=== PATIENT | female | born 1960 | race Caucasian/White ===

== ENCOUNTER → 2017-01-04 | Outpatient (CLI) | payer MEDICARE ==
--- NOTE | 2017-01-04 12:51 | XR ---
EXAMINATION TYPE: XR chest 2V DATE OF EXAM: 01/04/2017 12:46 PM COMPARISON: 06/13/2011 HISTORY: 56-year-old female persistent cough TECHNIQUE: Frontal and lateral views FINDINGS: The heart is normal size without pericardial effusion. There is diffuse interstitial prominence and p eribronchial cuffing. Vague peripheral mid lung densities, left greater than right, uncertain if this represents summation artifact. No pleural effusion. IMPRESSION: 1. Bronchitis or chronic asthma. 2. Some vague density left greater than right midlungs has a somewhat masslike configuration. If the patient has not responded to antibiotics, consider contrast-enhanced CT.
== END ==
LOC: RADXRMAIN 12:38
PROVIDERS: ATTEND Family Medicine
DX: J40 Bronchitis, not specified as acute or chronic (principal)
CPT/HCPCS: 71020

== ENCOUNTER → 2017-03-31 | Outpatient (CLI) | payer MEDICARE ==
--- NOTE | 2017-04-01 13:30 | MM ---
Reason for exam: screening (asymptomatic). Last mammogram was performed 3 years and 5 months ago. History: Patient is postmenopausal. Family history of breast cancer in maternal aunt. Benign excisional biopsy of the right breast, 2002. Physical Findings: A clinical breast exam by your physician is recommended on an annual basis and results should be correlated with mammographic findings. MG 3D Screening Mammo W/Cad Bilateral CC and MLO view(s) were taken. Prior study comparison: October 20, 2013, [facility] DIGITAL RIGHT MAMMOGRAM w/CAD. October 19, 2013, bilateral digital screening mammo w/CAD. December 13, 2011, bilateral digital screening mammo w/CAD. August 02, 2010, bilateral diagnostic digital mammog. The breast tissue is heterogeneously dense. This may lower the sensitivity of mammography. Three nodular focal asymmetries become more apparent on 3D images and are not well seen previously. These are in the upper outer quadrant right breast. ASSESSMENT: Incomplete: need additional imaging evaluation, BI-RAD 0 RECOMMENDATION: Special view mammogram and ultrasound of the right breast. [facility] will attempt to contact patient to return for supplemental views and ultrasound.
== END | disposition home or self-care (01) ==
LOC: RADMAMWWP 16:50
PROVIDERS: ATTEND Family Medicine
DX: Z12.31 Encounter for screening mammogram for malignant neoplasm of breast (principal)
CPT/HCPCS: 77063; G0202

== ENCOUNTER → 2017-11-12 | Outpatient (CLI) | payer MEDICARE ==
--- NOTE | 2017-11-12 10:55 | MM ---
Reason for exam: follow-up at short interval from prior study. Last mammogram was performed 6 months ago. History: Patient is postmenopausal. Family history of breast cancer in maternal aunt at age 50 and breast cancer in mother at age 62. Benign MG stereo VAD BX RT of the right breast, May 08, 2017. Benign excisional biopsy of the right breast, 2002. Physical Findings: Nurse did not find any significant physical abnormalities on exam. MG 3D Diag Mammo W/Cad RT CC and MLO view(s) were taken of the right breast. Prior study comparison: May 01, 2017, right breast MG 3d work up w/cad RT. March 31, 2017, bilateral MG 3d screening mammo w/cad. The breast tissue is heterogeneously dense. This may lower the sensitivity of mammography. Nodularity is unchanged for at least 6 months. The central nodule has been biopsied in the interval. Patient's annual exam can be performed in diagnostic clinic. These results were verbally communicated with the patient and result sheet given to the patient on 11/12/17. ASSESSMENT: Probably benign, BI-RAD 3 RECOMMENDATION: Follow-up diagnostic mammogram of both breasts in 6 months.
== END | disposition home or self-care (01) ==
LOC: RADMAMWWP 09:24
PROVIDERS: ATTEND Surgery
DX: R92.8 Other abnormal and inconclusive findings on diagnostic imaging of breast (principal)
CPT/HCPCS: 77065; G0279

== ENCOUNTER → 2018-05-26 | Outpatient (CLI) | payer MEDICARE ==
--- NOTE | 2018-05-27 08:15 | MM ---
Reason for exam: follow-up at short interval from prior study. Last mammogram was performed 6 months ago. History: Patient is postmenopausal. Family history of breast cancer in maternal aunt at age 50 and breast cancer in mother at age 62. Benign MG stereo VAD BX RT of the right breast, May 08, 2017. Benign excisional biopsy of the right breast, 2002. Physical Findings: Nurse did not find any significant physical abnormalities on exam. MG 3D Diag Mammo W/Cad EDI Bilateral CC and MLO view(s) were taken. Technologist: Dea Briseno, RT (R)(M) Prior study comparison: November 12, 2017, right breast MG 3d diag mammo w/cad RT. May 01, 2017, right breast MG 3d work up w/cad RT. The breast tissue is heterogeneously dense. This may lower the sensitivity of mammography. Previous mammotome biopsy in the right breast. There is chronic nodularity in the right breast. There is no discrete abnormality. These results were verbally communicated with the patient and result sheet given to the patient on 05/26/18. ASSESSMENT: Benign, BI-RAD 2 RECOMMENDATION: Routine screening mammogram of both breasts in 1 year.
== END ==
LOC: RADMAMWWP 14:15
PROVIDERS: ATTEND Surgery
DX: R92.8 Other abnormal and inconclusive findings on diagnostic imaging of breast (principal)
CPT/HCPCS: 77066; G0279; 77062

== ENCOUNTER → 2019-06-14 | Outpatient (CLI) | payer MEDICARE ==
--- NOTE | 2019-06-14 10:44 | XR ---
EXAMINATION TYPE: XR chest 2V DATE OF EXAM: 06/14/2019 COMPARISON: 01/04/2017 INDICATION: Short of breath chest congestion every day smoker TECHNIQUE: Frontal and lateral views of the chest are obtained. FINDINGS: The heart size is normal. The pulmonary vasculature is normal. Suspicious consolidations are not identified.. IMPRESSION: 1. No acute pulmonary process. 2. Consider follow-up low-dose CT chest for screening.
== END ==
LOC: RADXRMAIN 10:23
PROVIDERS: ATTEND Family Medicine
DX: R06.02 Shortness of breath (principal); R09.89 Other specified symptoms and signs involving the circulatory and respiratory systems
CPT/HCPCS: 71046

== ENCOUNTER → 2020-07-14 | Outpatient (CLI) | payer MEDICARE ==
--- NOTE | 2020-07-17 09:39 | MM ---
Reason for exam: additional evaluation requested from prior study. Last mammogram was performed 2 years and 2 months ago. History: Patient is postmenopausal. Family history of breast cancer in maternal aunt at age 50 and breast cancer in mother at age 62. Benign MG stereo VAD BX RT of the right breast, May 08, 2017. Benign excisional biopsy of the right breast, 2002. Physical Findings: Nurse did not find any significant physical abnormalities on exam. MG 3D Diag Mammo W/Cad EDI Bilateral CC, MLO, and XCCL view(s) were taken. Prior study comparison: May 26, 2018, bilateral MG 3d diag mammo w/cad EDI. November 12, 2017, right breast MG 3d diag mammo w/cad RT. The breast tissue is heterogeneously dense. This may lower the sensitivity of mammography. Previous mammotome biopsy in the right breast. No significant new findings when compared with previous films. These results were verbally communicated with the patient and result sheet given to the patient on 07/14/20. ASSESSMENT: Benign, BI-RAD 2 RECOMMENDATION: Routine screening mammogram of both breasts in 1 year.
--- NOTE | 2020-07-17 09:40 | USB ---
Reason for exam: additional evaluation requested from prior study. History: Patient is postmenopausal. Family history of breast cancer in maternal aunt at age 50 and breast cancer in mother at age 62. Benign MG stereo VAD BX RT of the right breast, May 08, 2017. Benign excisional biopsy of the right breast, 2002. US Breast RT Right complete breast ultrasound includes all four quadrants, the retroareolar region and axilla. Finding demonstrates a 0.8 x 0.6 x 0.3cm cystic lesion at 2 o'clock. These results were verbally communicated with the patient and result sheet given to the patient on 07/14/20. ASSESSMENT: Probably benign, BI-RAD 3 RECOMMENDATION: Ultrasound of the right breast in 6 months. Manage patient on a clinical basis.
== END | disposition home or self-care (01) ==
LOC: RADMAMWWP 14:10
PROVIDERS: ATTEND Surgery
DX: N64.52 Nipple discharge (principal); N64.59 Other signs and symptoms in breast
CPT/HCPCS: 77066; 76641; G0279; 77062

== ENCOUNTER 2022-03-20 15:56 | Observation (INO) | payer MEDICARE ==
[2022-03-20 16:41] LABS: INR 0.9 (<1.2); Partial Thromboplastin Time 23.2 sec (22.0-30.0); Prothrombin Time 10.4 sec (9.0-12.0)
[2022-03-20 16:42] LABS: ALT 48 U/L (4-34); AST 33 U/L (14-36); African American GFR (CKD) >90 (>60 ml/min/1.73 sqM); Alkaline Phosphatase 113 U/L (38-126); Anion Gap 6 mmol/L; Blood Urea Nitrogen 11 mg/dL (7-17); Calcium 9.4 mg/dL (8.4-10.2); Carbon Dioxide 25 mmol/L (22-30); Chloride 105 mmol/L (98-107); Glucose 126 mg/dL (74-99); Magnesium 1.7 mg/dL (1.6-2.3); Non-African American GFR(CKD) >90 (>60 ml/min/1.73 sqM); Potassium 3.8 mmol/L (3.5-5.1); Sodium 136 mmol/L (137-145); Total Bilirubin 0.2 mg/dL (0.2-1.3); Total Protein 6.5 g/dL (6.3-8.2)
[2022-03-20 16:47] LABS: Basophils # (A) 0.1 k/uL (0-0.2); Basophils % (A) 1 %; Eosinophils # (A) 1.6 k/uL (0-0.7); Eosinophils % (A) 12 %; HCT 38.8 % (34.0-46.0); HGB 12.4 gm/dL (11.4-16.0); Lymphocytes % (A) 30 %; MCH 27.5 pg (25.0-35.0); MCV 85.9 fL (80.0-100.0); Mean Platelet Volume 7.8; Monocytes # (A) 0.6 k/uL (0-1.0); Monocytes % (A) 5 %; Neutrophils # (A) 6.8 k/uL (1.3-7.7); Neutrophils % (A) 51 %; Platelet Count 310 k/uL (150-450); RBC 4.52 m/uL (3.80-5.40); RDW 15.1 % (11.5-15.5); WBC 13.4 k/uL (3.8-10.6)
--- NOTE | 2022-03-20 17:14 | XR ---
EXAMINATION TYPE: XR chest 2V DATE OF EXAM: 03/20/2022 COMPARISON: 06/14/2019 HISTORY: Chest pain TECHNIQUE: FINDINGS: Heart is normal. Lungs are clear of consolidation. There are no hilar masses. Costophrenic angles are clear. Bony thorax is intact. IMPRESSION: No active cardiopulmonary disease. Normal heart. No change.
[2022-03-20 19:51] LABS: Appearance,Urine Clear (Clear); Bilirubin,Urine Negative (Negative); Blood,Urine Negative (Negative); Color,Urine Light Yellow; Glucose,Urine (UA) Negative (Negative); Ketones,Urine Negative (Negative); Leukocyte Esterase,Urine Negative (Negative); Nitrite,Urine Negative (Negative); Protein,Urine Negative (Negative); Urobilinogen,Urine <2.0 mg/dL (<2.0)
--- NOTE | 2022-03-20 20:01 | CT ---
EXAMINATION TYPE: CT abdomen pelvis w con DATE OF EXAM: 03/20/2022 COMPARISON: None HISTORY: abdominal distention CT DLP: 868.8 mGycm Automated exposure control for dose reduction was used. CONTRAST: Performed with IV Contrast, patient injected with 100 mL of Isovue 300. Images obtained from the diaphragm to the floor the pelvis with the IV contrast. There is some mild reticular interstitial infiltrate in the right lower lobe. Heart size is normal. N o pericardial effusion. Liver spleen and stomach pancreas gallbladder appear intact. The bile ducts are not dilated. There is no adrenal mass. Kidneys have normal size and contour. No hydronephrosis. Ureters are not di lated. There is no retroperitoneal adenopathy. The bladder distends smoothly. No inguinal hernia. No free fluid in the pelvis. No pelvic mass. There is hysterectomy. The lumbar spine is intact. No compression fracture. There is mild degenerative hypertrophic spurring . There is no mesenteric edema. No ascites or free air. No bowel obstruction. No intestinal wall thicke joseline. There is a minimal thoracolumbar levoscoliosis. There is no mesenteric edema. No ascites or free air. No sign of a bowel obstruction. There is 2 mm calcified granuloma in the posterior inferior right lo be of the liver. Appendix is not seen. No significant appendix. IMPRESSION: No acute abnormality in the abdomen and pelvis. There is some mild right lower lobe interstitial infi ltrate.
[2022-03-20] MEDS ORDERED: ASPIRIN 81 MG PO STA (20:33)
[2022-03-20] MEDS ORDERED: NITROGLYCERIN SL TABS 0.4 MG TAB SUBLINGUAL PRN (20:33)
--- NOTE | 2022-03-20 20:33 | ED ---
General Adult HPI - General Chief complaint: Chest Pain Stated complaint: Chest Pain Time Seen by Provider: 03/20/22 18:32 Source: patient, RN notes reviewed, old records reviewed Mode of arrival: ambulatory Limitations: no limitations - History of Present Illness Initial comments: This is a 61-year-old female presents emergency Department complaining of chest pain in the center of her chest also made her somewhat short of breath. Patient states it only lasts a few minutes and then it seemed to subside. Patient denies any radiation of pain. Patient has any fever chills or cough. Patient states she was in the hospital a month ago for pneumonia. Patient also comes in because her abdomen is been distended for one month and she has also gained significant weight. Patient states she feels like she is . Patient denies any nausea vomiting diarrhea per patient denies any specific area of abdominal pain. Patient denies any headache patient denies numbness or weakness. - Related Data Home Medications Medication Instructions Recorded Confirmed Atorvastatin [Lipitor] 10 mg PO HS 05/05/17 05/08/17 FLUoxetine HCL [PROzac] 40 mg PO DAILY 05/05/17 05/08/17 Levothyroxine Sodium [Synthroid] 75 mcg PO DAILY 05/05/17 05/08/17 OLANZapine [ZyPREXA] 15 mg PO DAILY 05/05/17 05/08/17 clonazePAM [KlonoPIN] 0.5 mg PO BID 05/05/17 05/08/17 Allergies Allergy/AdvReac Type Severity Reaction Status Date / Time atropine [From ] Allergy Rash/Hives Verified 03/20/22 16:09 ceftriaxone [From Rocephin] Allergy Unknown Verified 03/20/22 16:09 ciprofloxacin [From Cipro] Allergy Rash/Hives Verified 03/20/22 16:09 hyoscyamine [From ] Allergy Rash/Hives Verified 03/20/22 16:09 Penicillins Allergy Rash/Hives Verified 03/20/22 16:09 phenobarbital [From ] Allergy Rash/Hives Verified 03/20/22 16:09 scopolamine [From ] Allergy Rash/Hives Verified 03/20/22 16:09 Sulfa (Sulfonamide Allergy Rash/Hives Verified 03/20/22 16:09 Antibiotics) Review of Systems ROS Statement: Those systems with pertinent positive or pertinent negative responses have been documented in the HPI. ROS Other: All systems not noted in ROS Statement are negative. Past Medical History Past Medical History: Thyroid Disorder Additional Past Medical History / Comment(s): paranoid schizo-affective disorder History of Any Multi-Drug Resistant Organisms: None Reported Past Surgical History: Breast Surgery, Section Additional Past Surgical History / Comment(s): Hx. right breast benign excisional bx., eye surgery Past Anesthesia/Blood Transfusion Reactions: Previous Problems w/ Anesthesia Additional Past Anesthesia/Blood Transfusion Reaction / Comment(s): Hard time waking up from anesthesia after a Past Psychological History: Schizoaffective Disorder Smoking Status: Current every day smoker Past Alcohol Use History: None Reported Past Drug Use History: None Reported General Exam - General Exam Comments Initial Comments: GENERAL: Patient is well-developed and well-nourished. Patient is nontoxic and well- hydrated and is in mild distress. ENT: Neck is soft and supple. No significant lymphadenopathy is noted. Oropharynx is clear. Moist mucous membranes. Neck has full range of motion without eliciting any pain. EYES: The sclera were anicteric and conjunctiva were pink and moist. Extraocular movements were intact and pupils were equal round and reactive to light. Eyelids were unremarkable. PULMONARY: Unlabored respirations. Good breath sounds bilaterally. No audible rales rhonchi or wheezing was noted. CARDIOVASCULAR: There is a regular rate and rhythm without any murmurs gallops or rubs. ABDOMEN: Soft and nontender with normal bowel sounds. Abdomen is significantly distended SKIN: Skin is clear with no lesions or rashes and otherwise unremarkable. NEUROLOGIC: Patient is alert and oriented x3. Cranial nerves II through XII are grossly intact. Motor and sensory are also intact. Normal speech, volume and content. Symmetrical smile. MUSCULOSKELETAL: Normal extremities with adequate strength and full range of motion. LYMPHATICS: No significant lymphadenopathy is noted PSYCHIATRIC: Normal psychiatric evaluation. Limitations: no limitations Course Vital Signs 03/20/22 03/20/22 16:06 18:38 Temperature 99 F Pulse Rate 108 H Pulse Rate [ 102 H Drafter Patent ] Respiratory 18 Rate Blood Pressure 119/77 O2 Sat by Pulse 98 Oximetry Medical Decision Making - Medical Decision Making Chest x-ray shows no acute abnormality. CT of the abdomen and pelvis shows no acute abnormality there is a little bit of interstitial infiltrate. I will back and discussed the case with the patient she was very concerned still about how big her abdomen is gotten over 1 month. I spoke with Dr. Poole he agreed to admit the patient admitted the patient wrote admitting orders. - Lab Data Result diagrams: 03/20/22 16:29 03/20/22 16:10 Lab Results 03/20/22 03/20/22 03/20/22 Range/Units 16:10 16:10 16:10 WBC (3.8-10.6) k/uL RBC (3.80-5.40) m/uL Hgb (11.4-16.0) gm/dL Hct (34.0-46.0) % MCV (80.0-100.0) fL MCH (25.0-35.0) pg MCHC (31.0-37.0) g/dL RDW (11.5-15.5) % Plt Count (150-450) k/uL MPV Neutrophils % % Lymphocytes % % Monocytes % % Eosinophils % % Basophils % % Neutrophils # (1.3-7.7) k/uL Lymphocytes # (1.0-4.8) k/uL Monocytes # (0-1.0) k/uL Eosinophils # (0-0.7) k/uL Basophils # (0-0.2) k/uL PT 10.4 (9.0-12.0) sec INR 0.9 (<1.2) APTT 23.2 (22.0-30.0) sec Sodium 136 L (137-145) mmol/L Potassium 3.8 (3.5-5.1) mmol/L Chloride 105 (98-107) mmol/L Carbon Dioxide 25 (22-30) mmol/L Anion Gap 6 mmol/L BUN 11 (7-17) mg/dL Creatinine 0.61 (0.52-1.04) mg/dL Est GFR (CKD-EPI)AfAm >90 (>60 ml/min/1.73 sqM) Est GFR (CKD-EPI)NonAf >90 (>60 ml/min/1.73 sqM) Glucose 126 H (74-99) mg/dL Calcium 9.4 (8.4-10.2) mg/dL Magnesium 1.7 (1.6-2.3) mg/dL Total Bilirubin 0.2 (0.2-1.3) mg/dL AST 33 (14-36) U/L ALT 48 H (4-34) U/L Alkaline Phosphatase 113 (38-126) U/L Troponin I <0.012 (0.000-0.034) ng/mL Total Protein 6.5 (6.3-8.2) g/dL Albumin 4.0 (3.5-5.0) g/dL Urine Color Urine Appearance (Clear) Urine pH (5.0-8.0) Ur Specific [place] (1.001-1.035) Urine Protein (Negative) Urine Glucose (UA) (Negative) Urine Ketones (Negative) Urine Blood (Negative) Urine Nitrite (Negative) Urine Bilirubin (Negative) Urine Urobilinogen (<2.0) mg/dL Ur Leukocyte Esterase (Negative) 03/20/22 03/20/22 Range/Units 16:29 18:58 WBC 13.4 H (3.8-10.6) k/uL RBC 4.52 (3.80-5.40) m/uL Hgb 12.4 (11.4-16.0) gm/dL Hct 38.8 (34.0-46.0) % MCV 85.9 (80.0-100.0) fL MCH 27.5 (25.0-35.0) pg MCHC 32.0 (31.0-37.0) g/dL RDW 15.1 (11.5-15.5) % Plt Count 310 (150-450) k/uL MPV 7.8 Neutrophils % 51 % Lymphocytes % 30 % Monocytes % 5 % Eosinophils % 12 % Basophils % 1 % Neutrophils # 6.8 (1.3-7.7) k/uL Lymphocytes # 4.0 (1.0-4.8) k/uL Monocytes # 0.6 (0-1.0) k/uL Eosinophils # 1.6 H (0-0.7) k/uL Basophils # 0.1 (0-0.2) k/uL PT (9.0-12.0) sec INR (<1.2) APTT (22.0-30.0) sec Sodium (137-145) mmol/L Potassium (3.5-5.1) mmol/L Chloride (98-107) mmol/L Carbon Dioxide (22-30) mmol/L Anion Gap mmol/L BUN (7-17) mg/dL Creatinine (0.52-1.04) mg/dL Est GFR (CKD-EPI)AfAm (>60 ml/min/1.73 sqM) Est GFR (CKD-EPI)NonAf (>60 ml/min/1.73 sqM) Glucose (74-99) mg/dL Calcium (8.4-10.2) mg/dL Magnesium (1.6-2.3) mg/dL Total Bilirubin (0.2-1.3) mg/dL AST (14-36) U/L ALT (4-34) U/L Alkaline Phosphatase (38-126) U/L Troponin I (0.000-0.034) ng/mL Total Protein (6.3-8.2) g/dL Albumin (3.5-5.0) g/dL Urine Color Light Yellow Urine Appearance Clear (Clear) Urine pH 6.0 (5.0-8.0) Ur Specific [place] 1.010 (1.001-1.035) Urine Protein Negative (Negative) Urine Glucose (UA) Negative (Negative) Urine Ketones Negative (Negative) Urine Blood Negative (Negative) Urine Nitrite Negative (Negative) Urine Bilirubin Negative (Negative) Urine Urobilinogen <2.0 (<2.0) mg/dL Ur Leukocyte Esterase Negative (Negative) Disposition Clinical Impression: Chest pain, Abdominal distention Disposition: ADMITTED IP TO THIS HOSP Referrals: Jaya Poole DO [Primary Care Provider] - 1-2 days Time of Disposition: 20:33
[2022-03-21] MEDS: NITROGLYCERIN OINT 1 INCH/GM PACKET TOPICAL SCH ×3 (00:04→11:02)
[2022-03-21] MEDS ORDERED: BUDESONIDE 0.5 MG/2 ML NEBU INHALATION PRN (00:26)
[2022-03-21] MEDS ORDERED: clonazePAM 0.5 MG TAB PO PRN (00:26)
[2022-03-21] MEDS ORDERED: ALBUTEROL NEBULIZED 2.5 MG/3 ML INHALATION PRN ×2 (00:26→02:00)
[2022-03-21] MEDS ORDERED: ATORVASTATIN 10 MG TAB PO SCH (00:30)
[2022-03-21] MEDS ORDERED: MONTELUKAST 10 MG TAB PO SCH (00:30)
[2022-03-21] MEDS ORDERED: OLANZapine 7.5 MG TAB PO SCH (00:30)
[2022-03-21] MEDS ORDERED: LEVOTHYROXINE 88 MCG TAB PO SCH (06:30)
[2022-03-21] MEDS ORDERED: SYMBICORT 80-4.5 MCG INHALER INHALATION SCH (08:00)
[2022-03-21] MEDS ORDERED: FOLIC ACID 1 MG TAB PO SCH (09:00)
[2022-03-21] MEDS ORDERED: ASPIRIN 325 MG TAB PO SCH (09:00)
[2022-03-21] MEDS ORDERED: VIT A,C & E-LUTEIN-MINERALS 1 EACH TAB PO SCH (09:00)
[2022-03-21] MEDS ORDERED: FLUoxetine HCL 20 MG CAP PO SCH (09:00)
[2022-03-21] MEDS ORDERED: PANTOPRAZOLE 40 MG/10 ML VIAL IVP SCH (11:00)
--- NOTE | 2022-03-21 11:53 | P.CRDCN ---
History of Present Illness History of present illness: HISTORY OF PRESENTING ILLNESS This is a pleasant 61-year-old female past medical history significant for chronic nicotine dependence, hypothyroidism, schizoaffective disorder, dyslipiemia. She does not follow with a reclaimer. We have been asked to see in consultation for chest pain. Patient presents to the emergency department with complaints of abdominal distention and chest pain. Patient states for one month patient has been having on and off chest discomfort, describes it as squeezing. It is nonradiating, nonexertional. She states it lasts for 1 minute. No specific aggravating or alleviating factors. Her pain has resolved. She denies any associated shortness of breath, diaphoresis, nausea, vomiting, lightheadedness or dizziness. She denies any other symptoms. She denies a history of CAD, ND, stroke, diabetes, hypertension. She recently presented to [facility] in January 2022 with similar complaints. Patient underwent Lexiscan stress test. Report obtained from [facility]. Lexiscan stress test was on 01/22/2022 which revealed no evidence of reversible ischemia. DIAGNOSTICS * EKG reveals sinus tachycardia, heart rate 104, no acute ST ST-T wave abnorma lities to suggest ischemia * Telemetry tracings indicate sinus mechanism * Chest xray no acute cardiopulmonary process * CT abdomen and pelvis with no acute abdominal abnormality reported * Laboratory reviewed, CBC 13.4, hemoglobin 12.4, platelets 310, troponin negative 3, sodium 136, potassium 3.8, BUN 11, serum 0.6 * Current home cardiac medications include atorvastatin 10 mg nightly REVIEW OF SYSTEMS At the time of my exam: All symptoms resolved CONSTITUTIONAL: Denies fever or chills. CARDIOVASCULAR: Denies chest pain, shortness of breath, orthopnea, PND or palpitations. RESPIRATORY: Denies cough. GASTROINTESTINAL: Denies abdominal pain, diarrhea, constipation, nausea or vomiting. MUSCULOSKELETAL: Denies myalgias. NEUROLOGIC: Denies numbness, tingling, headache or weakness. ENDOCRINE: Denies fatigue, weight change, polydipsia or polyurina. GENITOURINARY: Denies burning, hematuria or urgency with micturation. HEMATOLOGIC: Denies history of anemia or bleeding. PHYSICAL EXAMINATION Vitals reviewed CONSTITUTIONAL: No apparent distress. HEENT: Head is normocephalic. Pupils are equal, round. Sclerae anicteric. Mucous membranes of the mouth are moist. No JVD. No carotid bruit. CHEST EXAMINATION: Lungs are clear to auscultation. No chest wall tenderness is noted on palpation or with deep breathing. HEART EXAMINATION: Regular rate and rhythm. S1, S2 heard. No murmurs, gallops or rub. ABDOMEN: Soft, nontender. Positive bowel sounds. EXTREMITIES: 2+ peripheral pulses, no lower extremity edema and no calf tenderness. SKIN: warm, dry NEUROLOGIC EXAMINATION: Patient is awake, alert and oriented x3. ASSESSMENT Chest pain, atypical, acute coronary syndrome has ruled out, patient with recent negative Lexiscan stress test Chronic nicotine dependence Hypothyroidism Dyslipidemia PLAN An acute coronary event has been ruled out with no EKG evidence of ischemia and negative cardiac enzymes. Lexiscan Report obtained from [facility]. Lexiscan stress test was on 01/22/2022 which revealed no evidence of reversible ischemia. Smoking cessation discussed and highly recommended. No further changes from a cardiology perspective, we will follow the patient as needed. Please reach out if any issues or concerns. Thank you kindly for this consultation. Nurse practitioner note has been reviewed by physician. Signing provider agrees with the documented findings, assessment, and plan of care. Past Medical History Past Medical History: Thyroid Disorder Additional Past Medical History / Comment(s): paranoid schizo-affective disorder History of Any Multi-Drug Resistant Organisms: None Reported Past Surgical History: Breast Surgery, Section Additional Past Surgical History / Comment(s): Hx. right breast benign excisional bx., eye surgery, left breast benign excisional bx Past Anesthesia/Blood Transfusion Reactions: Previous Problems w/ Anesthesia Additional Past Anesthesia/Blood Transfusion Reaction / Comment(s): Hard time waking up from anesthesia after a Past Psychological History: Schizoaffective Disorder Smoking Status: Current every day smoker Past Alcohol Use History: None Reported Past Drug Use History: None Reported - Past Family History Mother Family Medical History: Cancer Additional Family Medical History / Comment(s): lung and liver CA. All aunts also of CA Medications and Allergies Home Medications Medication Instructions Recorded Confirmed Type Atorvastatin [Lipitor] 10 mg PO HS 05/05/17 03/20/22 History FLUoxetine HCL [PROzac] 40 mg PO DAILY 05/05/17 03/20/22 History OLANZapine [ZyPREXA] 15 mg PO HS 05/05/17 03/20/22 History clonazePAM [KlonoPIN] 0.5 mg PO BID PRN 05/05/17 03/20/22 History Albuterol Inhaler [Ventolin Hfa 2 puff INHALATION RT-Q6H PRN 03/20/22 03/20/22 History Inhaler] Albuterol Nebulized [Ventolin 2.5 mg INHALATION RT-Q6H PRN 03/20/22 03/20/22 History Nebulized] Budesonide 0.5 mg INHALATION RT-BID PRN 03/20/22 03/20/22 History Fluticasone Propion/Salmeterol 1 puff INHALATION RT-BID 03/20/22 03/20/22 History [Wixela 250-50 Inhub] Folic Acid 0.8 mg PO DAILY 03/20/22 03/20/22 History Levothyroxine Sodium [Synthroid] 88 mcg PO DAILY 03/20/22 03/20/22 History Montelukast [Singulair] 10 mg PO HS 03/20/22 03/20/22 History Multivit-Min/Iron/Folic/Lutein 1 tab PO DAILY 03/20/22 03/20/22 History [Centrum Silver Women Tablet] Allergies Allergy/AdvReac Type Severity Reaction Status Date / Time atropine [From ] Allergy Rash/Hives Verified 03/20/22 21:02 ceftriaxone [From Rocephin] Allergy Unknown Verified 03/20/22 21:02 ciprofloxacin [From Cipro] Allergy Rash/Hives Verified 03/20/22 21:02 hyoscyamine [From ] Allergy Rash/Hives Verified 03/20/22 21:02 Penicillins Allergy Rash/Hives Verified 03/20/22 21:02 phenobarbital [From ] Allergy Rash/Hives Verified 03/20/22 21:02 scopolamine [From ] Allergy Rash/Hives Verified 03/20/22 21:02 Sulfa (Sulfonamide Allergy Rash/Hives Verified 03/20/22 21:02 Antibiotics) Physical Exam Vitals: Vital Signs Temp Pulse Pulse Resp BP BP Pulse Ox 03/21/22 03:44 97.9 F 105 H 19 104/69 99 03/21/22 00:00 98.5 F 100 18 100/63 94 L 03/20/22 21:30 103 H 19 124/55 95 03/20/22 21:20 103 H 19 124/55 95 03/20/22 21:10 105 H 10 L 124/55 03/20/22 21:00 104 H 13 123/77 94 L 03/20/22 20:54 98.1 F 98 18 95/63 94 L 03/20/22 20:50 105 H 7 L 123/77 96 03/20/22 20:41 30 H 03/20/22 18:38 102 H 03/20/22 16:06 99 F 108 H 18 119/77 98 Intake and Output 03/20/22 03/21/22 03/21/22 22:59 06:59 14:59 Other: Voiding Method Toilet # Voids 1 2 Weight 64.41 kg Results 03/20/22 16:29 03/20/22 16:10 Cardiac Enzymes 03/20/22 03/20/22 03/20/22 Range/Units 16:10 16:10 21:12 AST 33 (14-36) U/L Troponin I <0.012 <0.012 (0.000-0.034) ng/mL 03/21/22 Range/Units 00:04 AST (14-36) U/L Troponin I <0.012 (0.000-0.034) ng/mL Coagulation 03/20/22 Range/Units 16:10 PT 10.4 (9.0-12.0) sec APTT 23.2 (22.0-30.0) sec CBC 03/20/22 Range/Units 16:29 WBC 13.4 H (3.8-10.6) k/uL RBC 4.52 (3.80-5.40) m/uL Hgb 12.4 (11.4-16.0) gm/dL Hct 38.8 (34.0-46.0) % Plt Count 310 (150-450) k/uL Comprehensive Metabolic Panel 03/20/22 Range/Units 16:10 Sodium 136 L (137-145) mmol/L Potassium 3.8 (3.5-5.1) mmol/L Chloride 105 (98-107) mmol/L Carbon Dioxide 25 (22-30) mmol/L BUN 11 (7-17) mg/dL Creatinine 0.61 (0.52-1.04) mg/dL Glucose 126 H (74-99) mg/dL Calcium 9.4 (8.4-10.2) mg/dL AST 33 (14-36) U/L ALT 48 H (4-34) U/L Alkaline Phosphatase 113 (38-126) U/L Total Protein 6.5 (6.3-8.2) g/dL Albumin 4.0 (3.5-5.0) g/dL Current Medications Generic Name Dose Route Start Last Admin Trade Name Freq PRN Reason Stop Dose Admin Albuterol Sulfate 2.5 mg 03/21/22 02:00 Albuterol Nebulized 2.5 Mg/3 Ml INHALATION RT-Q6H PRN Shortness Of Breath Aspirin 325 mg 03/21/22 09:00 Aspirin 325 Mg Tab PO DAILY [facility] Atorvastatin Calcium 10 mg 03/21/22 00:30 03/21/22 01:02 Atorvastatin 10 Mg Tab PO 10 mg HS [facility] Administration Budesonide 0.5 mg 03/21/22 00:26 Budesonide 0.5 Mg/2 Ml Nebu INHALATION RT-BID PRN Shortness Of Breath Budesonide/Formoterol Fumarate 2 puff 03/21/22 08:00 Symbicort 80-4.5 Mcg Inhaler INHALATION RT-BID [facility] Clonazepam 0.5 mg 03/21/22 00:26 03/21/22 01:02 Clonazepam 0.5 Mg Tab PO 0.5 mg BID PRN Administration Anxiety Fluoxetine HCl 40 mg 03/21/22 09:00 Fluoxetine Hcl 20 Mg Cap PO DAILY [facility] Folic Acid 1 mg 03/21/22 09:00 Folic Acid 1 Mg Tab PO DAILY [facility] Levothyroxine Sodium 88 mcg 03/21/22 06:30 03/21/22 06:42 Levothyroxine 88 Mcg Tab PO 88 mcg DAILY@0630 [facility] Administration Montelukast Sodium 10 mg 03/21/22 00:30 03/21/22 01:02 Montelukast 10 Mg Tab PO 10 mg HS [facility] Administration Multivitamins/Minerals 1 each 03/21/22 09:00 Vit A,C & Q-[id number] 1 Each Tab PO DAILY [facility] Nitroglycerin 1 inch 03/21/22 00:00 03/21/22 06:42 Nitroglycerin Oint 1 Inch/Gm Packet TOPICAL Not Given Q6HR [facility] Nitroglycerin 0.4 mg 03/20/22 20:33 Nitroglycerin Sl Tabs 0.4 Mg Tab SUBLINGUAL Q5M PRN Chest Pain Olanzapine 15 mg 03/21/22 00:30 03/21/22 01:02 Olanzapine 7.5 Mg Tab PO 15 mg HS [facility] Administration Intake and Output 03/20/22 03/21/22 03/21/22 22:59 06:59 14:59 Other: Voiding Method Toilet # Voids 1 2 Weight 64.41 kg 03/20/22 16:29 03/20/22 16:10
--- NOTE | 2022-03-21 13:31 | P.GSCN ---
History of Present Illness Consult date: 03/21/22 History of present illness: CHIEF COMPLAINT: Chest pain Reason for consult: Abdominal distention HISTORY OF PRESENT ILLNESS: This is a 61-year-old female who presents to the emergency room with complaints of chest pain and elevated heart rate. Patient also reports that she's been having some shortness of breath. She was recently treated for pneumonia. Patient also reports having abdominal distention for the last 2 months. She has had a 14 pound weight gain over the last few weeks. She reports having regular bowel movements. She denies any nausea vomiting. Denies any fever chills or sweats. She does have some pain in the right flank that comes around the right side of the abdomen. She's never had pain like this before. Last colonoscopy was about 10 years ago and had polyps removed. Patient seen by cardiology service no evidence of acute coronary syndrome. Patient did have mild tachycardia on admission. Computed tomography scan abdomen and pelvis was unremarkable. Urinalysis negative. White count elevated at 13.4. Past surgical history includes 2 C-sections and a hysterectomy. Patient denies any change in diet. She denies any increase in abdominal pain or distention after eating. She did report one day of swelling in her feet that re solved on its own. Otherwise no lower extremity edema. She has been on steroids for several months due to her bronchitis and pneumonia. PAST MEDICAL HISTORY: Schizoaffective disorder, hypothyroidism, hyperlipidemia PAST SURGICAL HISTORY: See list. MEDICATIONS: See list. ALLERGIES: See list. SOCIAL HISTORY: No illicit drug use. REVIEW OF SYSTEMS: CONSTITUTIONAL: Denies fever or chills. HEENT: Denies blurred vision, vision changes, or eye pain. Denies hemoptysis CARDIOVASCULAR: Denies chest pain or pressure. RESPIRATORY: No shortness of breath. GASTROINTESTINAL: See HPI for pertinent findings HEMATOLOGIC: Denies bleeding disorders. GENITOURINARY: Denies any blood in urine or increased urinary frequency. SKIN: Denies pruitis. Denies rash. PHYSICAL EXAM: VITAL SIGNS: Reviewed GENERAL: Well-developed in no acute distress. HEENT: No sclera icterus. Extraocular movements grossly intact. Moist buccal mucosa. Head is atraumatic, normocephalic. No nasal drainage. ABDOMEN: Soft. Abdominal distention. Tenderness to palpation of the right flank. NEUROLOGIC: Alert and oriented. Cranial nerves II through XII grossly intact. LABORATORY DATA: WBC is 13.4 Hgb 12.4 and platelets 310 INR 0.9 Sodium 136 potassium 3.8 creatinine 0.61 Total bili 0.2 AST 33 ALT 48 Troponin negative 3 IMAGING: Computed tomography scan abdomen and pelvis no acute abnormality in the abdomen and pelvis. There is some mild right lower lobe interstitial infiltrate. ASSESSMENT: 1. Abdominal distention with weight gain 2. Chest pain evaluated by cardiology. No evidence of acute coronary syndrome per cardiology PLAN: -Further recommendations forthcoming per surgeon -Continue supportive care -Continue regular diet Physician Education Program Specialist note has been reviewed by physician. Signing provider agrees with the documented findings, assessment, and plan of care. I have personally seen and examined the patient, reviewed the BUILDING ENERGY CONSULTANT /PAs history, exam and MDM and agree with the assessment and plan as written. Based on total visit time, I have performed more than 50% of the visit. As above: Patient with complaints of abdominal bloating. No significant pain. No change in bowel habits. Last colonoscopy 8 years ago. CAT scan reviewed and shows no definite abnormalities. Patient did have some leg swelling on presentation. Some of this increased abdominal girth could be related to retroperitoneal edema. Patient be evaluated by cardiology although no definite CHF identified thus far. Continue diet as tolerated. May discharge. Outpatient colonoscopy advised. Past Medical History Past Medical History: Thyroid Disorder Additional Past Medical History / Comment(s): paranoid schizo-affective disorder History of Any Multi-Drug Resistant Organisms: None Reported Past Surgical History: Breast Surgery, Section Additional Past Surgical History / Comment(s): Hx. right breast benign excisional bx., eye surgery, left breast benign excisional bx Past Anesthesia/Blood Transfusion Reactions: Previous Problems w/ Anesthesia Additional Past Anesthesia/Blood Transfusion Reaction / Comm: Hard time waking up from anesthesia after a Past Psychological History: Schizoaffective Disorder Smoking Status: Current every day smoker Past Alcohol Use History: None Reported Past Drug Use History: None Reported - Past Family History Mother Family Medical History: Cancer Additional Family Medical History / Comment(s): lung and liver CA. All aunts also of CA Medications and Allergies Home Medications Medication Instructions Recorded Confirmed Type Atorvastatin [Lipitor] 10 mg PO HS 05/05/17 03/20/22 History FLUoxetine HCL [PROzac] 40 mg PO DAILY 05/05/17 03/20/22 History OLANZapine [ZyPREXA] 15 mg PO HS 05/05/17 03/20/22 History clonazePAM [KlonoPIN] 0.5 mg PO BID PRN 05/05/17 03/20/22 History Albuterol Inhaler [Ventolin Hfa 2 puff INHALATION RT-Q6H PRN 03/20/22 03/20/22 History Inhaler] Albuterol Nebulized [Ventolin 2.5 mg INHALATION RT-Q6H PRN 03/20/22 03/20/22 History Nebulized] Budesonide 0.5 mg INHALATION RT-BID PRN 03/20/22 03/20/22 History Fluticasone Propion/Salmeterol 1 puff INHALATION RT-BID 03/20/22 03/20/22 History [Wixela 250-50 Inhub] Folic Acid 0.8 mg PO DAILY 03/20/22 03/20/22 History Levothyroxine Sodium [Synthroid] 88 mcg PO DAILY 03/20/22 03/20/22 History Montelukast [Singulair] 10 mg PO HS 03/20/22 03/20/22 History Multivit-Min/Iron/Folic/Lutein 1 tab PO DAILY 03/20/22 03/20/22 History [Centrum Silver Women Tablet] Allergies Allergy/AdvReac Type Severity Reaction Status Date / Time atropine [From ] Allergy Rash/Hives Verified 03/20/22 21:02 ceftriaxone [From Rocephin] Allergy Unknown Verified 03/20/22 21:02 ciprofloxacin [From Cipro] Allergy Rash/Hives Verified 03/20/22 21:02 hyoscyamine [From ] Allergy Rash/Hives Verified 03/20/22 21:02 Penicillins Allergy Rash/Hives Verified 03/20/22 21:02 phenobarbital [From ] Allergy Rash/Hives Verified 03/20/22 21:02 scopolamine [From ] Allergy Rash/Hives Verified 03/20/22 21:02 Sulfa (Sulfonamide Allergy Rash/Hives Verified 03/20/22 21:02 Antibiotics) Surgical - Exam Vital Signs Temp Pulse Resp BP Pulse Ox 99 F 108 H 18 119/77 98 03/20/22 16:06 03/20/22 16:06 03/20/22 16:06 03/20/22 16:06 03/20/22 16:06 Results - Labs 03/20/22 16:29 03/20/22 16:10 Abnormal Lab Results - Last 24 Hours (Table) 03/20/22 03/20/22 Range/Units 16:10 16:29 WBC 13.4 H (3.8-10.6) k/uL Eosinophils # 1.6 H (0-0.7) k/uL Sodium 136 L (137-145) mmol/L Glucose 126 H (74-99) mg/dL ALT 48 H (4-34) U/L Diabetes panel 03/20/22 Range/Units 16:10 Sodium 136 L (137-145) mmol/L Potassium 3.8 (3.5-5.1) mmol/L Chloride 105 (98-107) mmol/L Carbon Dioxide 25 (22-30) mmol/L BUN 11 (7-17) mg/dL Creatinine 0.61 (0.52-1.04) mg/dL Glucose 126 H (74-99) mg/dL Calcium 9.4 (8.4-10.2) mg/dL AST 33 (14-36) U/L ALT 48 H (4-34) U/L Alkaline Phosphatase 113 (38-126) U/L Total Protein 6.5 (6.3-8.2) g/dL Albumin 4.0 (3.5-5.0) g/dL Calcium panel 03/20/22 Range/Units 16:10 Calcium 9.4 (8.4-10.2) mg/dL Albumin 4.0 (3.5-5.0) g/dL Pituitary panel 03/20/22 Range/Units 16:10 Sodium 136 L (137-145) mmol/L Potassium 3.8 (3.5-5.1) mmol/L Chloride 105 (98-107) mmol/L Carbon Dioxide 25 (22-30) mmol/L BUN 11 (7-17) mg/dL Creatinine 0.61 (0.52-1.04) mg/dL Glucose 126 H (74-99) mg/dL Calcium 9.4 (8.4-10.2) mg/dL Adrenal panel 03/20/22 Range/Units 16:10 Sodium 136 L (137-145) mmol/L Potassium 3.8 (3.5-5.1) mmol/L Chloride 105 (98-107) mmol/L Carbon Dioxide 25 (22-30) mmol/L BUN 11 (7-17) mg/dL Creatinine 0.61 (0.52-1.04) mg/dL Glucose 126 H (74-99) mg/dL Calcium 9.4 (8.4-10.2) mg/dL Total Bilirubin 0.2 (0.2-1.3) mg/dL AST 33 (14-36) U/L ALT 48 H (4-34) U/L Alkaline Phosphatase 113 (38-126) U/L Total Protein 6.5 (6.3-8.2) g/dL Albumin 4.0 (3.5-5.0) g/dL
--- NOTE | 2022-03-21 14:02 | P.HPIM ---
History of Present Illness H&P Date: 03/21/22 Chief Complaint: Significant Stomach bloating This is a 61-year-old female with past medical history of recent admission at [facility] for severe pneumonia approximately 2 weeks ago, recent Lexiscan stress 2 months ago-patient reports negative, paranoia schizoaffective disorder, hypothyroidism, ongoing nicotine dependence and multiple other medical issues presented to the hospital with abdominal bloating 3 weeks that intensified yesterday, accompanied by bilateral flank pain. Also reported midsternal chest pain, not reproducible," internal", lasting for 3-4 minutes and then spontaneously resolved with no shortness of breath, no diaphoresis. Denies dysuria or frequency. UA negative. Renal function stable. Denies nausea vomiting or diarrhea. Reports regular bowel movements, last BM yesterday. Patient had been on steroids on her last hospitalization for pneumonia with taper at discharge. Denies any chest pain, palpitations or shortness of breath. Troponins negative 3. Maintaining O2 sats in the high 90s on room air. Borderline tachycardia .telemetry sinus .Afebrile, WBC 13.4, hemoglobin 12.4, platelets 310, coagulation panel unremarkable, chemistry panel unremarkable with the exception of ALT 48. CT of abdomen and pelvis reported no acute abnormality, mild lower lobe interstitial infiltrate. 2 mm calcified granuloma in the posterior inferior right lobe of the liver. Review of Systems Constitutional: Denied any fatigue denied any fever. Cardio vascular: denied any chest pain, palpitations Gastrointestinal denied any nausea vomiting Pulmonary: Denied any shortness of breath cough Neurologic denied any new focal deficits ROS Statement: Those systems with pertinent positive or pertinent negative responses have been documented in the HPI. ROS Other: All systems not noted in ROS Statement are negative. Past Medical History Past Medical History: Thyroid Disorder Additional Past Medical History / Comment(s): paranoid schizo-affective disorder History of Any Multi-Drug Resistant Organisms: None Reported Past Surgical History: Breast Surgery, Section Additional Past Surgical History / Comment(s): Hx. right breast benign excision al bx., eye surgery, left breast benign excisional bx Past Anesthesia/Blood Transfusion Reactions: Previous Problems w/ Anesthesia Additional Past Anesthesia/Blood Transfusion Reaction / Comment(s): Hard time waking up from anesthesia after a Past Psychological History: Schizoaffective Disorder Smoking Status: Current every day smoker Past Alcohol Use History: None Reported Past Drug Use History: None Reported - Past Family History Mother Family Medical History: Cancer Additional Family Medical History / Comment(s): lung and liver CA. All aunts also of CA Medications and Allergies Home Medications Medication Instructions Recorded Confirmed Type Atorvastatin [Lipitor] 10 mg PO HS 05/05/17 03/20/22 History FLUoxetine HCL [PROzac] 40 mg PO DAILY 05/05/17 03/20/22 History OLANZapine [ZyPREXA] 15 mg PO HS 05/05/17 03/20/22 History clonazePAM [KlonoPIN] 0.5 mg PO BID PRN 05/05/17 03/20/22 History Albuterol Inhaler [Ventolin Hfa 2 puff INHALATION RT-Q6H PRN 03/20/22 03/20/22 History Inhaler] Albuterol Nebulized [Ventolin 2.5 mg INHALATION RT-Q6H PRN 03/20/22 03/20/22 History Nebulized] Budesonide 0.5 mg INHALATION RT-BID PRN 03/20/22 03/20/22 History Fluticasone Propion/Salmeterol 1 puff INHALATION RT-BID 03/20/22 03/20/22 History [Wixela 250-50 Inhub] Folic Acid 0.8 mg PO DAILY 03/20/22 03/20/22 History Levothyroxine Sodium [Synthroid] 88 mcg PO DAILY 03/20/22 03/20/22 History Montelukast [Singulair] 10 mg PO HS 03/20/22 03/20/22 History Multivit-Min/Iron/Folic/Lutein 1 tab PO DAILY 03/20/22 03/20/22 History [Centrum Silver Women Tablet] Allergies Allergy/AdvReac Type Severity Reaction Status Date / Time atropine [From ] Allergy Rash/Hives Verified 03/20/22 21:02 ceftriaxone [From Rocephin] Allergy Unknown Verified 03/20/22 21:02 ciprofloxacin [From Cipro] Allergy Rash/Hives Verified 03/20/22 21:02 hyoscyamine [From ] Allergy Rash/Hives Verified 03/20/22 21:02 Penicillins Allergy Rash/Hives Verified 03/20/22 21:02 phenobarbital [From ] Allergy Rash/Hives Verified 03/20/22 21:02 scopolamine [From ] Allergy Rash/Hives Verified 03/20/22 21:02 Sulfa (Sulfonamide Allergy Rash/Hives Verified 03/20/22 21:02 Antibiotics) Physical Exam Vitals: Vital Signs Temp Pulse Pulse Resp BP BP Pulse Ox 03/21/22 08:45 96 03/21/22 08:38 100 94 L 03/21/22 08:00 97.8 F 103 H 16 103/78 98 03/21/22 03:44 97.9 F 105 H 19 104/69 99 03/21/22 00:00 98.5 F 100 18 100/63 94 L 03/20/22 21:30 103 H 19 124/55 95 03/20/22 21:20 103 H 19 124/55 95 03/20/22 21:10 105 H 10 L 124/55 03/20/22 21:00 104 H 13 123/77 94 L 03/20/22 20:54 98.1 F 98 18 95/63 94 L 03/20/22 20:50 105 H 7 L 123/77 96 03/20/22 20:41 30 H 03/20/22 18:38 102 H 03/20/22 16:06 99 F 108 H 18 119/77 98 Intake and Output 03/20/22 03/21/22 03/21/22 22:59 06:59 14:59 Intake Total 240 Balance 240 Intake: Oral 240 Other: Voiding Method Toilet # Voids 1 2 Weight 64.41 kg PHYSICAL EXAM: VITAL SIGNS: As above GENERAL: Sitting up in bed, no acute distress HEENT: Conjunctivae normal. eyes normal. Face with mild puffiness NECK: No JVD. No thyroid enlargement. No LNs CARDIOVASCULAR: S1, S2 regular. No murmur RESPIRATION: Breath sounds diminished in the bases. No rhonchi or crackles. No bronchial breathing. ABDOMEN: Soft, distended, nontender . No guarding. no masses palpable.Bowel sounds heard. Extremities: Bilateral hands puffiness ,LEGS No edema. no swelling PSYCHIATRY: Alert and oriented X3, mood and affect normal. NERVOUS SYSTEM: Cranial N 2-12 grossly normal. Moves all 4 limbs.No focal deficits. Strength and sensation grossly intact.. Skin: Warm and dry, no rash Results CBC & Chem 7: 03/20/22 16:29 03/20/22 16:10 Labs: Abnormal Lab Results - Last 24 Hours (Table) 03/20/22 03/20/22 Range/Units 16:10 16:29 WBC 13.4 H (3.8-10.6) k/uL Eosinophils # 1.6 H (0-0.7) k/uL Sodium 136 L (137-145) mmol/L Glucose 126 H (74-99) mg/dL ALT 48 H (4-34) U/L Thrombosis Risk Factor Assmnt - Choose All That Apply Each Factor Represents 1 point: Age 41-60 years, Obesity (BMI >25) Thrombosis Risk Factor Assessment Total Risk Factor Score: 2 Thrombosis Risk Factor Assessment Level: Low Risk Assessment and Plan Assessment: Abdominal distention in a patient who was recently hospitalized with severe pneumonia on prolonged steroid treatment Atypical Chest pain, no acute coronary syndrome as per cardiology, recent Lexiscan stress test-patient reports negative Hypothyroidism Paranoid schizo effective disorder Ongoing nicotine dependence Plan: Continue on current medication regime, monitoring and symptomatic treatment. Evaluated, cleared by cardiology. Discharge planning in progress pending surgery evaluation/recommendations and clearance. The impression and plan of care has been dictated as directed. : I performed a history and examination of this patient, discussed the same with the dictator. I agree with the dictator's note ,documented as a scribe. Any additional findings or plans will be noted.
[2022-03-21 14:50] LABS: Chol/HDL Ratio 3.88 Ratio
[2022-03-21 17:52] VITALS: BP 103/56; PULSE 94; RESP 18; TEMP 98.3
[2022-03-22] MEDS ORDERED: ASPIRIN 81 MG PO SCH (09:00)
== END 2022-03-21 18:44 | disposition home or self-care (01) ==
LOC: EC 15:56 → 3SCARD 20:33 → INTOOBSV 20:33 → 3SCARD 21:08 → UNDODISIN 03-21 18:44
PROVIDERS: ADMIT Family Medicine; ATTEND Family Medicine
DX: R07.89 Other chest pain (principal); K75.3 Granulomatous hepatitis, not elsewhere classified; F25.8 Other schizoaffective disorders; F17.200 Nicotine dependence, unspecified, uncomplicated; E03.9 Hypothyroidism, unspecified; E78.5 Hyperlipidemia, unspecified; Z79.899 Other long term (current) drug therapy; Z88.1 Allergy status to other antibiotic agents; Z88.0 Allergy status to penicillin; Z88.2 Allergy status to sulfonamides; Z88.8 Allergy status to other drugs, medicaments and biological substances; Z80.1 Family history of malignant neoplasm of trachea, bronchus and lung; Z80.0 Family history of malignant neoplasm of digestive organs
CPT/HCPCS: 96374; 99285; 36415; 94640; 94760; 93005; 80061; 80053; 83735; 84484 ×2; 85025; 85610; 85730; 81003; 71046; 74177; G0378 ×2; C9113; Q9967

== ENCOUNTER → 2023-08-29 | Outpatient (CLI) | payer MEDICARE ==
--- NOTE | 2023-08-29 14:59 | MM ---
Reason for Exam: Clinical finding. Last mammogram was performed 3 year(s) and 2 month(s) ago. Patient History: Menarche at age 15. First Full-Term at age 19. Left ovary removed at age 35. Right ovary removed at age 35. Hysterectomy at age 35. Postmenopausal. 2002, Benign Excisional Biopsy on the right side. 05/08/2017, Benign Core Biopsy on the right side. Maternal aunt had breast cancer, age 50. Mother had breast cancer, age 62. Risk Values: Tamiko 5 year model risk: 4.1%. NCI Lifetime model risk: 18.6%. Tissue Density: There are scattered fibroglandular densities. Findings: Analyzed By CAD. Pattern appears symmetrical and stable. No significant interval change is evident. There are bilateral biopsy clips present. Chronic nodularity appears to be present on the right. No suspicious groups of microcalcifications, spiculated or lobular masses, architectural distortion or other secondary signs of malignancy are mammographically apparent. Overall Assessment: Benign, BI-RAD 2 Management: Screening Mammogram of both breasts in 1 year. A negative mammogram report should not preclude additional follow up of suspicious palpable abnormalities. Patient should continue monthly self breast exam. A clinical breast exam by your physician is recommended on an annual basis and results should be correlated with mammographic findings. Electronically signed and approved by: Anant Mathur D.O. Radiologis
== END | disposition home or self-care (01) ==
LOC: RADMAMWWP 13:32
PROVIDERS: ATTEND Family Medicine
DX: R92.323 Mammographic fibroglandular density, bilateral breasts (principal); Z80.3 Family history of malignant neoplasm of breast; Z78.0 Asymptomatic menopausal state
CPT/HCPCS: 77066; G0279; 77062

== ENCOUNTER → 2024-11-03 | Outpatient (CLI) | payer MEDICARE ==
--- NOTE | 2024-11-03 13:57 | MM ---
Reason for Exam: Screening (asymptomatic). Last mammogram was performed 1 year(s) and 2 month(s) ago. Patient History: Menarche at age 15. First Full-Term at age 19. Left ovary removed at age 35. Right ovary removed at age 35. Hysterectomy at age 35. Postmenopausal. 2002, Benign Excisional Biopsy on the right side. 05/08/2017, Benign Core Biopsy on the right side. Maternal aunt had breast cancer, age 50. Mother had breast cancer, age 62. Risk Values: Tamiko 5 year model risk: 4.3%. NCI Lifetime model risk: 18.1%. Prior Study Comparison: 05/26/2018 Bilateral Diagnostic Mammogram, [facility]. 07/14/2020 Bilateral Diagnostic Mammogram, [facility]. 08/29/2023 Bilateral MG 3D diag mammo w/cad EDI, [facility]. Tissue Density: The breasts are heterogeneously dense, which may obscure small masses. Findings: Analyzed By CAD. Mammotome biopsy clip right breast redemonstrated. Occasional scattered benign appearing round calcification bilaterally is redemonstrated. Stable oval circumscribed mass near biopsy right breast. Slightly smaller circumscribed mass in the right breast medial and inferior to this is noted. There is no suspicious new group of microcalcifications or new suspicious mass in either breast. Overall Assessment: Benign, BI-RAD 2 Management: Screening Mammogram of both breasts in 1 year. . Patient should continue monthly self-breast exams. A clinical breast exam by your physician is recommended on an annual basis. This exam should not preclude additional follow-up of suspicious palpable abnormalities. Note on Tamiko scores and lifetime risk: 1. A Tamiko score greater than 3% is considered moderate risk. If this is the case, consider specialist referral to assess eligibility for a risk reducing agent. 2. If overall lifetime risk for the development of breast cancer is 20% or higher, the patient may qualify for future screening with alternating mammogram and breast MRI. [facility], , 11/03/2024 1:54 PM. Electronically signed and approved by: Toby Hunter M.D.
== END | disposition home or self-care (01) ==
LOC: RADMAMWWP 12:59
PROVIDERS: ATTEND Family Medicine
DX: Z12.31 Encounter for screening mammogram for malignant neoplasm of breast (principal); R92.333 Mammographic heterogeneous density, bilateral breasts; R92.1 Mammographic calcification found on diagnostic imaging of breast; Z80.3 Family history of malignant neoplasm of breast; Z78.0 Asymptomatic menopausal state
CPT/HCPCS: 77067